=== PATIENT | male | born 1935 | race Caucasian/White ===

== ENCOUNTER → 2018-04-23 | Outpatient (CLI) | payer MEDICARE ==
--- NOTE | 2018-04-23 16:52 | RADIOLOGY IMAGING REPORT ---
FACILITY: [facility] - [place] PATIENT NAME: Austin Montejo : 1935 MR: [id number] V: [id number] EXAM DATE: ORDERING PHYSICIAN: MARCO A DAVID TECHNOLOGIST: Location: Patient: Austin Montejo : 1935 Visit/Account:[id number] Date of Sevice: 04/23/2018 Exam type: LUMBAR SPINE 2 OR 3 VIEW History: Low back pain, numbness and tingling down legs and into the Comparison: MR lumbar spine October 21, 2009. Findings: There are five nonrib-bearing lumbar-type vertebral bodies present. There is a dextrorotary scoliosi s of the lumbar spine with the eighth PACS at L2-3 there is diffuse demineralization the bones. Ther e is moderate to severe disc space narrowing from L1 to S1 and marginal osteophytes at multiple level s. IMPRESSION: 1. 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 If patient's symptoms persist MR is recommended Report Dictated By: Donna Ward MD at 04/23/2018 4:46 PM Report E-Signed By: Donna Ward MD at 04/23/2018 4:48 PM AWILDAN:MARLA
== END ==
LOC: RAD 16:06
PROVIDERS: ATTEND Chiropractor
DX: M41.86 Other forms of scoliosis, lumbar region (principal); M47.896 Other spondylosis, lumbar region
CPT/HCPCS: 72100

== ENCOUNTER → 2019-03-17 | Outpatient (CLI) | payer MEDICARE ==
--- NOTE | 2019-03-17 11:12 | RADIOLOGY IMAGING REPORT ---
FACILITY: [facility] PATIENT NAME: Austin Montejo : 1935 MR: [id number] V: [id number] EXAM DATE: ORDERING PHYSICIAN: SIGRID DREW TECHNOLOGIST: Location: [facility] - [place] Patient: Austin Montejo : 1935 Visit/Account:[id number] Date of Sevice: 03/17/2019 EXAMINATION: MR SPINE LUMBAR W/O CON INDICATION: Low back pain COMPARISON: 10/21/2009 TECHNIQUE: Multiplane MR imaging was performed through the lumbar spine without contrast. FINDINGS: Vertebral bodies and posterior elements: L2 wedge compression deformity with mild anterior height los s is new compared to prior. Conus position/signal: Normal Marrow signal: Mild degenerative edema surrounds the L3-4 and L4-5 disc spaces. Linear edema within t he upper L2 vertebral body is new. Extraspinal structures including psoas muscles/paraspinal soft tissues: Left renal cysts. L1-2: Moderate new disc space degeneration. Small new disc protrusion. Mild new bilateral lateral rec ess narrowing. Mild to moderate left and mild right new foraminal narrowing. L2-3: Severe disc space degeneration has progressed. New posterior endplate spurring. Small disc prot rusion as before. Mild bilateral lateral recess narrowing has increased. Moderate left foraminal narr owing has increased. Mild to moderate right foraminal narrowing has increased. L3-4: Severe disc space degeneration has progressed. New posterior endplate spurring. Small disc prot rusion has increased in size. Prominence of posterior epidural space fat has increased. Mild facet ar thropathy and ligamentum flavum thickening as before. Severe new thecal sac narrowing. Moderate to se selina left foraminal narrowing has increased. Moderate unchanged right foraminal narrowing. L4-5: Severe new disc space degeneration. Small disc protrusion has increased in size. Increased liga mentum flavum thickening. Mild unchanged facet arthropathy. Prominence of posterior epidural space fa t has increased. Severe new thecal sac narrowing. Severe right foraminal narrowing has increased. Mod erate unchanged left foraminal narrowing. L5-S1: Severe unchanged disc space degeneration. Small disc protrusion has slightly increased in size . Mild bilateral lateral recess narrowing has increased. Unchanged severe right foraminal narrowing. Moderate left foraminal narrowing has increased. IMPRESSION: 1. Age-indeterminate mild L2 wedge compression deformity is new compared to prior. New linear edema w ithin this vertebral body. Given the constellation of findings a subacute wedge compression fracture cannot be excluded. This could alternatively a represent a chronic wedge compression deformity and th e linear edema could be degenerative. Correlate with history/exam. 2. Severe new L3-4 and L4-5 thecal sac narrowing secondary to the constellation of findings described above. 3. Multilevel foraminal narrowing is new or has increased at multiple levels, see level by level comm ents above. 4. Multilevel severe disc space degeneration has progressed at multiple levels. Report Dictated By: Matias Mckinley MD at 03/17/2019 10:45 AM Report E-Signed By: Matias Mckinley MD at 03/17/2019 11:07 AM WSN:[email or web address]
== END ==
LOC: MRI 00:28
PROVIDERS: ATTEND Family Medicine
DX: M54.16 Radiculopathy, lumbar region (principal)
CPT/HCPCS: 72148

== ENCOUNTER → 2019-04-28 | Outpatient (CLI) | payer MEDICARE ==
[~2019-04-28] MED LIST: GADOBENATE 529MG/1ML 15ML VIAL IVP ONE
--- NOTE | 2019-04-28 16:45 | RADIOLOGY IMAGING REPORT ---
FACILITY: [facility] - [place], [place] PATIENT NAME: Austin Montejo : 1935 MR: [id number] V: [id number] EXAM DATE: ORDERING PHYSICIAN: SIGRID DREW TECHNOLOGIST: Location: [facility] - [place] Patient: Austin Montejo : 1935 Visit/Account:[id number] Date of Sevice: 04/28/2019 EXAMINATION: MRI Brain without intravenous contrast MRI Brain with intravenous contrast HISTORY: Memory loss. COMPARISON: None available. TECHNIQUE: Multi-planar, multi-sequence brain MRI was performed before and after IV gadolinium. CONTRAST: 12 mL of IV MultiHance FINDINGS: Brain volume: Mild generalized volume loss. Sagittal midline structures: Negative. Ventricles: Negative. Acute ischemic changes: None. Hemorrhage: None. Masses / edema: None. Enhancement: Negative. Burgos-white: Negative. White matter: Negative. Vessels: Negative. Extra-axial: Negative. Calvarium / scalp: Negative. Skull base: Negative. Visualized sinuses / orbits: Small cyst or polyp versus secretions in left maxillary sinus. Visualized upper neck: Negative. IMPRESSION: No acute intracranial abnormality or mass. Report Dictated By: Juan Pablo Mcneil MD at 04/28/2019 4:37 PM Report E-Signed By: Juan Pablo Mcneil MD at 04/28/2019 4:40 PM WSN:[email or web address]
== END ==
LOC: MRI 00:40
PROVIDERS: ATTEND Family Medicine
DX: G31.84 Mild cognitive impairment of uncertain or unknown etiology (principal)
CPT/HCPCS: 70553; A9577

== ENCOUNTER → 2019-06-23 | Outpatient (CLI) | payer MEDICARE ==
--- NOTE | 2019-06-23 14:00 | RADIOLOGY IMAGING REPORT ---
FACILITY: [facility] - [place] PATIENT NAME: Austin Montejo : 1935 MR: [id number] V: [id number] EXAM DATE: ORDERING PHYSICIAN: SIGRID DREW TECHNOLOGIST: Location: [facility] Patient: Austin Montejo : 1935 Visit/Account:[id number] Date of Sevice: 06/23/2019 DEXA Scan Clinical history: Long-term steroid use, loss of height. Comparison: None available. LUMBAR SPINE: The bone mineral density (BMD) measured from L1-L4 correlates with a Z-score 1.3 and a T-score of -0. 1 which is Normal as defined by the World Health Organization. The corresponding risk of fracture in the lumbar spine is Not increased compared with a young adult reference population. HIP: Bone mineral density (BMD) measured in the Left total hip region correlates with a Z-score -0.6 and a T-score of -2.3 which is osteopenia as defined by the World Health Organization. The corresponding risk of fracture in the hip is 46 times increased compared with a young adult reference population. T score left femoral neck -3 Bone mineral density (BMD) measured in the Femoral Neck region measures 0.674 g/cm2. Impression: 1. Lumbar spine: Normal. 2. Left Hip: Osteopenia. 3. Femoral Neck: Bone Mineral Density is 0.674 g/cm2 The next DEXA scan of this patient should include the following sites: L1-L4 and the left hip. FRAX? WHO Fracture Risk Assessment Tool link: <http://www.shef.ac.uk/FRAX/tool.jsp?[email or web address]> PLEASE NOTE: 1) The World Health Organization defines low BMD as follows: T-score Normal > -1 Osteopenia < -1 and > -2.5 Osteoporosis < -2.5 without fractures Established osteoporosis < -2.5 with fractures 2) In general, you may wish to consider: Diagnosis Treatment Follow-up DEXA Normal BMD Prevention 2-3 years Osteopenia Prevention/therapy 1-2 years Osteoporosis Therapy Yearly 3) Fracture risk estimated from the T-score is more accurate for vertebral fractures (often spontane ous) than for hip fractures. Report Dictated By: Donna Ward MD at 06/23/2019 1:50 PM Report E-Signed By: Donna Ward MD at 06/23/2019 1:51 PM WSN:[email or web address]
== END ==
LOC: RAD 00:59
PROVIDERS: ATTEND Family Medicine
DX: M85.88 Other specified disorders of bone density and structure, other site (principal)
CPT/HCPCS: 77080